=== PATIENT | female | born 1960 | race Caucasian/White ===

== ENCOUNTER 2017-06-13 08:48 | Emergency (ER) | payer OTHER ==
[~2017-06-13] VITALS: Ht 165.1 cm; Wt 57.2 kg
--- OUTSIDE RECORDS SUMMARY | 2017-06-13 08:53 | External Medical Summary Rpt | CCD ---
Author Author PHILOMENA Address Unknown Phone [email or web address] Purpose Continuity of Care Document - through 2016
--- OUTSIDE RECORDS SUMMARY | 2017-06-13 08:53 | External Medical Summary Rpt | CCD ---
Author Author PHILOMENA Address Unknown Phone [email or web address] Purpose Continuity of Care Document - through 2016
--- OUTSIDE RECORDS SUMMARY | 2017-06-13 08:53 | External Medical Summary Rpt | CCD ---
Author Author [employer] Organization [employer] Address Unknown Phone Unavailable Purpose Continuity of Care Document - through 2016
--- OUTSIDE RECORDS SUMMARY | 2017-06-13 08:53 | External Medical Summary Rpt ---
Author Author PHILOMENA Norris, [employer] Organization [employer] Address Unknown Phone Unavailable
--- OUTSIDE RECORDS SUMMARY | 2017-06-13 08:53 | External Medical Summary Rpt | CCD ---
Demographics Preferred Language Wolof Marital Status Unknown Anglican Affiliation Unknown Race Unknown Ethnic Group Unknown Author Author PHILOMENA Address Unknown Phone Immunization No patient found.
--- OUTSIDE RECORDS SUMMARY | 2017-06-13 08:53 | External Medical Summary Rpt | CCD ---
Demographics Preferred Language Khmer Marital Status Unknown Church Affiliation Unknown Race Unknown Ethnic Group Unknown Author Author PHILOMENA Address Unknown Phone Immunization No patient found.
--- NOTE | 2017-06-13 09:21 | Urgent Treatment Center Report ---
History of Present Issue Date/Time Seen by Provider 06/13/17910 Visit Reason Pt arrived:Walked Presenting Problem:PT STATES SHE WOKE UP THIS MORNING WITH A SRATCHY THROAT, SOB , AND SHAKY Location if Accident: Onset of symptoms date/time:06/13/17 or onset unknown for: Have you (or family members/close friends) recently traveled outside the [place]? N If Yes, where/when: Have you had exposure to infectious disease within the past month? TB? Other? Specify: Patient state that she felt fine when she laid down last night then when she woke up this morning she had a scratchy throat and mild headache. States that she was eating breakfast and she began to loose her voice. State that she has not had fever that she knows of, Denies sinus pain or pressure, states that she has anxiety and it made her feel anxious and at times short of breath and nervous. State that now her throat still feels scratchy and she is barely able to talk with a headache but denies shortness of breath or cough History Medical History General CAD? No Angina: No [place]: No Hypertension? No Hyperlipidemia? No CHF? No DVT? No PE? No COPD? No Asthma? No Anemia? No GERD? No Gastric ulcers? No GI Bleed? No Hernia? No Thyroid Problems? Yes Hypothyroidism? No Seizures? No Diabetes? No UTI? No Stones? No BPH? No GB Disease: No Nephritic Syndrome? No Asplenia? No Hepatitis? No Sickle Cell Disease? No Migraines? No Cataracts? No Glaucoma? No MRSA? No HIV? No TB? No Anxiety? No Depression? No Cancer? No More? No Immunization HX DT/Tetanus 5-10 Years Ago Surgical Hx Previous Surgery?N Social History Smoking Hx Smoker: Current Every Day Smoker Tobacco: Yes Type Cigarettes Packs/day 1 1/2 - 2 Packs Alcohol Alcohol: No Review of Systems All Other Systems Reviewed and Negative ENT throat pain. Psychiatric/Neurological headache Physical Exam Vital Signs Vital Signs Date Time Temp Pulse Resp B/P Pulse O2 O2 Flow FiO2 Ox Delivery Rate 06/13 905 98.1 82 20 139/77 99 General Appearance normal appearance, WD/WN, no apparent distress Ear, Nose, Throat throat red drainage noted no exudate Respiratory Status Yes: trachea midline, chest symmetrical. No: respiratory distress. Lung Sounds bilateral: normal breath sounds, lungs clear. Cardiovascular normal exam, regular rate/rhythm Neurologic alert, normal exam, oriented x 3 Medical Decision Making LABS/Meds/Orders Pt receiving controlled substance in ED? No Results/Orders Current Medication Orders Sig/Jennyfer Start time Last Medication Dose Route Stop Time Status Admin Ketorolac 0 .STK-MED ONE 06/13 931 DC Tromethamine .ROUTE Methylprednisolone 0 .STK-MED ONE 06/13 931 DC Sodium Succinate .ROUTE Ketorolac 60 MG ONCE ONE 06/13 930 DC Tromethamine IM 06/13 931 Methylprednisolone 125 MG ONCE ONE 06/13 930 DC Sodium Succinate IM 06/13 931 Progress [facility] Progress Notes Comment Patient state that she feels better and headache almost gone Departure Departure Time of Disposition 957 Disposition DC Home or Self Care(routine) Clinical Impression Primary Impression: Viral upper respiratory illness Condition STABLE Patient Instructions DI for Laryngitis, Sore Throat Additional Instructions * Monitor Temp. Tylenol and/or Ibuprofen as needed. ER if fever is no less than 101 despite alternating Tylenol and Ibuprofen * Encourage fluids, water, Gatorade, powerade, pedialyte if /toddler/or child * Warm salt water gargles for throat irritation *Warm fluids *Sore throat lozenges *Sleep elevated *humidifier or vaporizer Follow up IMMEDIATELY for new or worsening of symptoms OR no noticeable improvement over the next 48-72 hours. 911 immediately for any life threatening symptoms such as chest pain or difficulty breathing Discharge Counseling Counseled pt/family regarding diagnosis, medications/RX, home care, follow up needs at [phone]
[2017-06-13 10:12] VITALS: BP 139/77
== END 2017-06-13 10:12 | disposition home or self-care (01) ==
LOC: UTC 08:48
DX: J06.9 Acute upper respiratory infection, unspecified (principal); F17.210 Nicotine dependence, cigarettes, uncomplicated